=== PATIENT | female | born 1990 | race Two or more races ===

== ENCOUNTER 2021-11-03 15:19 | Inpatient (IN) | payer MEDICARE, MEDICAID ==
[~2021-11-03] VITALS: Ht 160 cm; Wt 47.6 kg
[2021-11-03] MEDS ORDERED: IPRATROPIUM BROMIDE (0.02%) 0.5MG/2.5ML NEB HHN STA (15:31)
[2021-11-03] MEDS ORDERED: ALBUTEROL (0.083%) 2.5MG/3ML NEB HHN STA (15:31)
[2021-11-03] MEDS ORDERED: MORPHINE SULFATE 4 MG/ML CPJ (NOT FOR IM USE) IV STA (15:56)
[2021-11-03] MEDS ORDERED: ONDANSETRON HCL 4MG/2ML INJ IV STA (15:56)
[2021-11-03 16:51] LABS: BG BASE EXCESS 2.6 mmol/L (-2.0-2.0); BG CARBOXYHEMOGLOBIN 0.2 % (0.5-1.5); BG DEOXYHEMOGLOBIN 4.7 % (0.0-5.0); BG FRACTION INSPIRED OXYGEN 50; BG HCO3 ACT 25.6 mmol/L (22.0-26.0); BG METHEMOGLOBIN 0.6 % (0.0-1.5); BG OXYGEN SATURATION 95.3 % (92.0-98.5); BG OXYHEMOGLOBIN 94.5 % (94.0-97.0); BG PCO2 33.6 mmHg (35.0-45.0); BG PO2 83.2 mmHg (75.0-100.0); BG SAMPLE SITE LEFT BRACHIAL; BG TOTAL HEMOGLOBIN 9.6 g/dL (12.0-18.0); BG VENT MODE MASK - VENTI
[2021-11-03] MEDS ORDERED: LEVOFLOXACIN 500MG PREMIX 100 ML IV ONE (17:15)
[2021-11-03 17:48] LABS: BASOPHILS % 0.6 % (0.0-2.0); EOSINOPHILS % 0.7 % (0.0-5.0); HEMATOCRIT. 29.2 % (36.0-48.0); HEMOGLOBIN. 9.2 g/dL (12.0-16.0); LYMPHOCYTES % 9.4 % (20.0-50.0); MEAN CORPUSCULAR HEMOGLOBIN 27.9 pg (28.0-32.0); MEAN CORPUSCULAR VOLUME 88.7 fL (81.0-99.0); MEAN PLATELET VOLUME 7.3 fl (7.4-10.4); MONOCYTES % 9.9 % (2.0-8.0); NEUTROPHILS % 79.4 % (40.0-76.0); PLATELET 198 x1000/uL (130-400); RED BLOOD CELL COUNT 3.29 mill/uL (4.2-5.4); RED CELL DISTRIBUTION WIDTH 20.1 % (11.6-14.6)
[2021-11-03 17:57] LABS: HCG SCREEN NEGATIVE
[2021-11-03 17:59] LABS: CHLORIDE 97 mEq/L (98-107)
[2021-11-03 18:04] LABS: INR 1.1; PROTHROMBIN TIME 11.9 sec (9.6-11.0)
[2021-11-03 18:07] LABS: CREATINE KINASE 92 IU/L (26-192)
[2021-11-03] MEDS ORDERED: SODIUM POLYSTYRENE SULFONATE 15 G/60 ML BOT PO ONE (18:30)
[2021-11-03] MEDS ORDERED: CALCIUM CHLORIDE 1GM/10ML SYR IV ONE (18:30)
[2021-11-03] MEDS ORDERED: SODIUM BICARBONATE 8.4% 1 MEQ/ML 50ML SYR IV ONE (18:30)
[2021-11-03] MEDS ORDERED: INSULIN REGULAR (HUMULIN R) 300UNITS/3ML VIAL IV ONE (18:30)
[2021-11-03] MEDS ORDERED: DEXTROSE 50% WATER 50ML SYRINGE IV ONE (18:30)
[2021-11-03] MEDS ORDERED: HYDRALAZINE 20MG/ML VIAL IV NR (20:30)
[2021-11-03] MEDS: DIPHENHYDRAMINE 50MG/ML VIAL IV PRN (20:48)
[2021-11-03 23:15] VITALS: BP 189/112
[2021-11-03 23:49] VITALS: BP 189/112
[2021-11-04] VITALS (26 sets, daily range): BP systolic 126–209; BP diastolic 66–134
[2021-11-04] MEDS: LABETALOL 5MG/ML SYR 20 MG/4 ML SYRINGE IV PRN (02:02)
[2021-11-04 02:14] LABS: HEPATITIS B SURFACE ANTIGEN NEGATIVE
[2021-11-04] MEDS: AMLODIPINE 10MG TABLET PO SCH ×2 (02:15→10:15)
[2021-11-04] MEDS: LISINOPRIL 40MG TABLET PO SCH ×2 (02:15→09:00)
[2021-11-04] MEDS ORDERED: DOCUSATE SODIUM 100MG CAPSULE PO PRN (02:15)
[2021-11-04] MEDS ORDERED: MAGNESIUM/ALUMINUM HYDROXIDE/SIMETHICONE 30ML UDC PO PRN (02:15)
[2021-11-04] MEDS ORDERED: ONDANSETRON HCL 4MG/2ML INJ IV PRN (02:15)
[2021-11-04] MEDS ORDERED: GUAIFENESIN 200MG/10ML SUGAR FREE UDC PO PRN (02:15)
[2021-11-04] MEDS: TRAMADOL 50MG TABLET PO PRN ×2 (03:58→12:30)
[2021-11-04] MEDS: ONDANSETRON HCL 4MG/2ML INJ IV PRN (04:06)
[2021-11-04] MEDS: DIPHENHYDRAMINE 50MG/ML VIAL IV PRN ×3 (05:25→21:01)
[2021-11-04] MEDS: HYDRALAZINE HCL 50MG TABLET PO SCH ×3 (06:55→21:01)
[2021-11-04] MEDS: ENOXAPARIN 30MG/0.3ML SYR SUBCUT SCH (10:15)
[2021-11-04] MEDS: ACETAMINOPHEN 325MG TABLET PO PRN ×2 (10:15→18:32)
[2021-11-04] MEDS: CLONIDINE 0.1MG TABLET PO PRN ×2 (12:29→18:32)
[2021-11-04] MEDS ORDERED: KETOROLAC 10MG TABLET PO PRN (13:00)
[2021-11-04] MEDS ORDERED: ACETAMINOPHEN 325MG TABLET PO PRN (13:30)
[2021-11-04] MEDS: HYDROCODONE/APAP 7.5/325MG 1 TAB TABLET PO PRN (20:03)
[2021-11-04] MEDS: EPOETIN ALFA-EPBX 4,000 UNIT/ML VIAL SUBCUT SCH (21:00)
[2021-11-04] MEDS ORDERED: KETOROLAC 30MG/ML VIAL IV PRN (22:00)
[2021-11-05] VITALS (12 sets, daily range): BP systolic 128–179; BP diastolic 22–121
[2021-11-05] MEDS: CLONIDINE 0.1MG TABLET PO PRN ×2 (02:22→20:09)
[2021-11-05] MEDS: HYDROCODONE/APAP 7.5/325MG 1 TAB TABLET PO PRN ×2 (02:23→09:07)
[2021-11-05] MEDS: DIPHENHYDRAMINE 50MG/ML VIAL IV PRN ×4 (03:08→20:09)
[2021-11-05] MEDS: ONDANSETRON HCL 4MG/2ML INJ IV PRN (04:48)
[2021-11-05] MEDS: HYDRALAZINE HCL 50MG TABLET PO SCH ×3 (05:02→21:48)
[2021-11-05 05:54] LABS: HEMOGLOBIN. 9.2 g/dL (12.0-16.0); MEAN CORPUSCULAR VOLUME 87.9 fL (81.0-99.0); MEAN PLATELET VOLUME 7.7 fl (7.4-10.4); PLATELET 222 x1000/uL (130-400); RED CELL DISTRIBUTION WIDTH 19.7 % (11.6-14.6)
[2021-11-05 06:13] LABS: CHLORIDE 94 mEq/L (98-107)
[2021-11-05 06:30] LABS: HDL CHOLESTEROL 43 mg/dL (40-59); LDL CHOLESTEROL 60 mg/dL (5-100)
[2021-11-05] MEDS: LISINOPRIL 40MG TABLET PO SCH (09:07)
[2021-11-05] MEDS: AMLODIPINE 10MG TABLET PO SCH (09:08)
[2021-11-05] MEDS: ENOXAPARIN 30MG/0.3ML SYR SUBCUT SCH (09:09)
[2021-11-05 09:53] LABS: PLATELET ESTIMATE NORMAL
[2021-11-05] MEDS ORDERED: HYDROXYCHLOROQUINE SULFATE 200MG TABLET PO SCH (12:00)
[2021-11-05] MEDS ORDERED: MORPHINE SULFATE 2 MG/ML CPJ (NOT FOR IM USE) IV PRN (12:30)
[2021-11-05] MEDS: PREDNISONE 5MG TABLET PO SCH ×2 (12:51→20:09)
[2021-11-05] MEDS ORDERED: NALOXONE HCL 0.4 MG/ML 1ML VIAL IV PRN (13:00)
[2021-11-05] MEDS ORDERED: VANCOMYCIN 1G PREMIX 200 ML IV NR (13:00)
[2021-11-05] MEDS ORDERED: MORPHINE SULFATE 2 MG/ML CPJ (NOT FOR IM USE) IV NR (14:00)
[2021-11-05] MEDS ORDERED: METHOCARBAMOL 500MG TABLET PO PRN (14:00)
[2021-11-05] MEDS: HYDROXYCHLOROQUINE SULFATE 200MG TABLET PO SCH ×2 (14:42→21:46)
[2021-11-05] MEDS: OXYCODONE HCL/ACETAMINOPHEN 5/325MG TABLET PO PRN (21:48)
[2021-11-06] VITALS (8 sets, daily range): BP systolic 142–188; BP diastolic 80–105
[2021-11-06] MEDS: DIPHENHYDRAMINE 50MG/ML VIAL IV PRN ×4 (03:10→23:30)
[2021-11-06] MEDS: LABETALOL 5MG/ML SYR 20 MG/4 ML SYRINGE IV PRN (03:31)
[2021-11-06] MEDS: OXYCODONE HCL/ACETAMINOPHEN 5/325MG TABLET PO PRN ×2 (05:01→20:04)
[2021-11-06 06:19] LABS: HEMATOCRIT 29.4 % (36.0-48.0); HEMOGLOBIN 9.3 g/dL (12.0-16.0); MEAN CORPUSCULAR HEMOGLOBIN 27.5 pg (28.0-32.0); MEAN CORPUSCULAR VOLUME 87.4 fL (81.0-99.0); PLATELET 223 x1000/uL (130-400); RED BLOOD CELL COUNT 3.37 mill/uL (4.2-5.4); RED CELL DISTRIBUTION WIDTH 19.7 % (11.6-14.6)
[2021-11-06 06:29] LABS: CHLORIDE 101 mEq/L (98-107)
[2021-11-06] MEDS: HYDRALAZINE HCL 50MG TABLET PO SCH ×3 (07:32→21:18)
[2021-11-06] MEDS: ENOXAPARIN 30MG/0.3ML SYR SUBCUT SCH ×3 (08:44→09:00)
[2021-11-06] MEDS: AMLODIPINE 10MG TABLET PO SCH (08:44)
[2021-11-06] MEDS: LISINOPRIL 40MG TABLET PO SCH (08:44)
[2021-11-06] MEDS: HYDROXYCHLOROQUINE SULFATE 200MG TABLET PO SCH ×2 (08:44→16:04)
[2021-11-06] MEDS: PREDNISONE 5MG TABLET PO SCH (08:44)
[2021-11-06] MEDS ORDERED: MORPHINE SULFATE 2 MG/ML CPJ (NOT FOR IM USE) IV PRN (12:00)
[2021-11-06] MEDS: MORPHINE SULFATE 2 MG/ML CPJ (NOT FOR IM USE) IV PRN ×3 (12:37→23:30)
[2021-11-06] MEDS: ONDANSETRON HCL 4MG/2ML INJ IV PRN (15:40)
[2021-11-06] MEDS: PREDNISONE 10MG TABLET PO SCH (16:04)
[2021-11-06] MEDS ORDERED: VANCOMYCIN 500MG PREMIX 100 ML IV NR (21:00)
[2021-11-06] MEDS: EPOETIN ALFA-EPBX 4,000 UNIT/ML VIAL SUBCUT SCH (21:16)
[2021-11-06 21:48] LABS: BG DEOXYHEMOGLOBIN 10.7 % (0.0-5.0); BG FRACTION INSPIRED OXYGEN 21; BG HCO3 ACT 27.9 mmol/L (22.0-26.0); BG METHEMOGLOBIN 0.2 % (0.0-1.5); BG OXYGEN SATURATION 89.2 % (92.0-98.5); BG OXYHEMOGLOBIN 88.1 % (94.0-97.0); BG PCO2 35.5 mmHg (35.0-45.0); BG PH 7.514 (7.350-7.450); BG PO2 56.3 mmHg (75.0-100.0); BG SAMPLE SITE LEFT BRACHIAL; BG TOTAL HEMOGLOBIN 11.5 g/dL (12.0-18.0); BG VENT MODE ROOM AIR
[2021-11-07 00:04] VITALS: BP 144/79
[2021-11-07 04:00] VITALS: BP 125/70
[2021-11-07] MEDS: OXYCODONE HCL/ACETAMINOPHEN 5/325MG TABLET PO PRN (04:23)
[2021-11-07] MEDS: MORPHINE SULFATE 2 MG/ML CPJ (NOT FOR IM USE) IV PRN ×2 (06:53→12:39)
[2021-11-07] MEDS: DIPHENHYDRAMINE 50MG/ML VIAL IV PRN ×2 (06:54→12:40)
[2021-11-07 08:45] VITALS: BP 128/69
[2021-11-07] MEDS: LISINOPRIL 40MG TABLET PO SCH (09:30)
[2021-11-07] MEDS: HYDROXYCHLOROQUINE SULFATE 200MG TABLET PO SCH (09:30)
[2021-11-07] MEDS: AMLODIPINE 10MG TABLET PO SCH (09:30)
[2021-11-07] MEDS: PREDNISONE 10MG TABLET PO SCH (09:30)
[2021-11-07] MEDS: ENOXAPARIN 30MG/0.3ML SYR SUBCUT SCH (09:35)
[2021-11-07 11:41] LABS: HEMATOCRIT 33.4 % (36.0-48.0); HEMOGLOBIN 10.6 g/dL (12.0-16.0); MEAN CORPUSCULAR HEMOGLOBIN 27.4 pg (28.0-32.0); MEAN CORPUSCULAR VOLUME 86.2 fL (81.0-99.0); PLATELET 298 x1000/uL (130-400); RED BLOOD CELL COUNT 3.87 mill/uL (4.2-5.4); RED CELL DISTRIBUTION WIDTH 19.4 % (11.6-14.6)
[2021-11-07 12:37] VITALS: BP 134/71
[2021-11-07 12:39] VITALS: BP 134/71
== END 2021-11-07 15:30 | disposition home or self-care (01) | DRG 922 ==
LOC: ER 15:19 → 5EST 19:04 → EDBEDREQTM 19:10 → EDBEDREQ 19:10 → ENRESERV 19:42 → 8WST 11-06 09:13
PROVIDERS: ADMIT Hospitalist; ATTEND Hospitalist
PROC: 5A1D70Z Performance of Urinary Filtration, Intermittent, Less than 6 Hours Per Day (ICD-10-PCS; principal; 2021-11-03)
PROC: 5A1D70Z Performance of Urinary Filtration, Intermittent, Less than 6 Hours Per Day (ICD-10-PCS; 2021-11-05)
PROC: 5A1D70Z Performance of Urinary Filtration, Intermittent, Less than 6 Hours Per Day (ICD-10-PCS; 2021-11-06)
DX: T67.5XXA Heat exhaustion, unspecified, initial encounter (principal); I21.A1 Myocardial infarction type 2; N18.6 End stage renal disease; J80 Acute respiratory distress syndrome; I50.43 Acute on chronic combined systolic (congestive) and diastolic (congestive) heart failure; R18.8 Other ascites; I13.2 Hypertensive heart and chronic kidney disease with heart failure and with stage 5 chronic kidney disease, or end stage renal disease; Z20.822 Contact with and (suspected) exposure to COVID-19; E87.5 Hyperkalemia; I25.10 Atherosclerotic heart disease of native coronary artery without angina pectoris; G89.4 Chronic pain syndrome; F41.9 Anxiety disorder, unspecified; M47.816 Spondylosis without myelopathy or radiculopathy, lumbar region; M51.36 Other intervertebral disc degeneration, lumbar region; M32.14 Glomerular disease in systemic lupus erythematosus; D63.1 Anemia in chronic kidney disease; M19.90 Unspecified osteoarthritis, unspecified site; I27.20 Pulmonary hypertension, unspecified; M32.9 Systemic lupus erythematosus, unspecified; F19.10 Other psychoactive substance abuse, uncomplicated; R77.8 Other specified abnormalities of plasma proteins; X30.XXXA Exposure to excessive natural heat, initial encounter; F12.10 Cannabis abuse, uncomplicated; I25.2 Old myocardial infarction; Z95.810 Presence of automatic (implantable) cardiac defibrillator; Z99.2 Dependence on renal dialysis; Z79.52 Long term (current) use of systemic steroids; Z79.899 Other long term (current) drug therapy; Z86.19 Personal history of other infectious and parasitic diseases; Z95.5 Presence of coronary angioplasty implant and graft; Y93.89 Activity, other specified; Y92.89 Other specified places as the place of occurrence of the external cause; Y99.8 Other external cause status
CPT/HCPCS: 36415; 36600; 71045; 74176; 80048; 80053; 80061; 80202; 82375; 82550; 82805; 83605; 84145; 84484; 84703; 85025; 85027; 85651; 86140; 86160; 86225; 86705; 86709; 86803; 87340; 87426; 93005; 93970; 94640; 99291; C1893; C9803; J0360; J0885; J1200; J1650; J1815; J1956; J2270; J2405; J3370; J3490; J7512